=== PATIENT | female | born 1950 | race African-American/Black ===

== ENCOUNTER 2023-05-20 19:54 | Emergency (ER) | payer OTHER, SELFPAY ==
[2023-05-20] VITALS (10 sets, daily range): BP systolic 95–126; BP diastolic 49–69; PULSE 77–93; RESP 21–27; TEMP 38.3; O2SAT 94–100
--- NOTE | ~2023-05-20 | XR_ITS ---
EXAMINATION: XR chest 1V portable DATE: 05/20/2023 20:24 INDICATION: Fever and weakness TECHNIQUE: frontal view of the chest was obtained on 2 AP images. COMPARISON: None FINDINGS: Opacities in the left mid and lower lung zone which could be related to atelectasis given the elevati on the left hemidiaphragm although differential would include pneumonia. No pulmonary edema, pleural effusion or pneumothorax. Cardiomegaly. IMPRESSION: 1. Elevation the left hemidiaphragm with opacity left mid and lower lung zone most likely atelectasis although pneumonia not excludable. Reviewed, dictated and finalized at location A. [facility] [employer] IMPRESSION: 1. Elevation the left hemidiaphragm with opacity left mid and lower lung zone m ost likely atelectasis although pneumonia not excludable.
--- NOTE | ~2023-05-20 | CT_ITS ---
EXAMINATION: CT abdomen pelvis wo con DATE: 05/20/2023 21:26 INDICATION: Fever and diarrhea TECHNIQUE: Computed tomography (CT) of the abdomen and pelvis was performed without intravenous contr ast. Automated exposure control and iterative reconstruction technique were employed. The dose-length product was 663.71 mGy-cm. COMPARISON: None FINDINGS: Cardiomegaly. Minimal pericardial effusion. Small amount of pneumomediastinum in the right anterior p ericardial fat. There is also suggestion of a very small pneumothorax along the anteromedial margin o f the right middle lobe. Increased elevation of the left hemidiaphragm. There are some mild discoid a telectasis in the bilateral lower lobes. No pleural effusion. Cirrhotic liver with nodular surface. The gallbladder is nonvisualized and likely surgically absent. Spleen, pancreas and bilateral adrenal glands are normal. There are multiple bilateral renal cysts th e largest on the right measuring up to 5.2 cm. There is also a 1.3 cm hypodense hemorrhagic/proteinac eous right renal cyst. There is fluid throughout the proximal two thirds of the colon consistent with provided history of diarrhea. No abnormal bowel wall thickening or obstruction. Normal appendix. Home dder, uterus and bilateral adnexa are unremarkable. No free intraperitoneal gas or fluid. No patholog ically enlarged abdominal or pelvic lymphadenopathy. There is stranding in subcutaneous gas in the bronson bcutaneous fat at the junction of the posterior medial left thigh and inferior gluteal fold. Mild tho racic and lumbar spondylosis. L2 hemangioma with thickened vertical trabecular pattern. IMPRESSION: 1. Small amount of pneumomediastinum mediastinum and tiny right pneumothorax. This of indeterminate e tiology but given the reported history of vomiting this could be related to an esophageal tear. 2. Cardiomegaly with very small pericardial effusion. 3. Cirrhosis. 4. Fluid in the otherwise normal-appearing colon consistent with nonspecific diarrhea. 5. Stranding and gas in the subcutaneous fat at the junction of the posterior medial left thigh and i nferior left gluteal cleft which raises concern for necrotizing fasciitis. Dr. Lee discussed thi s and the pneumomediastinum/right pneumothorax with Dr. Wilcox at 9:58 PM. Reviewed, dictated and finalized at location A. [facility] IMPRESSION: 1. Small amount of pneumomediastinum mediastinum and tiny right pneumothorax. T his of indeterminate etiology but given the reported history of vomiting this c ould be related to an esophageal tear. 2. Cardiomegaly with very small pericardial effusion. 3. Cirrhosis. 4. Fluid in the otherwise normal-appearing colon consistent with nonspecific di arrhea. 5. Stranding and gas in the subcutaneous fat at the junction of the posterior m edial left thigh and inferior left gluteal cleft which raises concern for necro tizing fasciitis. Dr. Lee discussed this and the pneumomediastinum/right p neumothorax with Dr. Wilcox at 9:58 PM.
--- NOTE | 2023-05-20 19:57 | ECG_ITS ---
Measurements Intervals [place] Rate: 81 P: 67 OK: 137 QRS: -21 QRSD: 116 T: 75 QT: 364 QTc: 425 Interpretive Statements SINUS RHYTHM WITH SHORT OK INTERVAL BORDERLINE LEFT AXIS DEVIATION [QRS AXIS < -20] LEFT VENTRICULAR HYPERTROPHY AND ST-T CHANGE [VOLTAGE CRITERIA PLUS ST/T ABNORMALITY] ABNORMAL ECG NO PREVIOUS ECG AVAILABLE FOR COMPARISON Electronically Signed On 05-21-2023 13:57:58 [employer] by Fercho Tompkins M.D.
[2023-05-20 20:03] LABS: Glucose Point of Care 154 mg/dl (65-105)
--- NOTE | 2023-05-20 20:32 | ED.GENADULT ---
HPI - General Adult General Chief complaint: Weakness Stated complaint: weakness Time Seen by Provider: 05/20/23 20:01 History of Present Illness HPI narrative: patient is a 72-year-old female who presents to the emergency department with chief complaint of generalized weakness nausea vomiting and diarrhea since Wednesday the patient reports that she has been able to keep some fluids down reports she has prior history of AFib patient reports that she has also had a fever and has just felt unwell. Related Data Home Medications Medication Instructions Recorded Confirmed cholecalciferol (vitamin D3) 1,250 1,250 mcg PO WEEKLY 04/03/21 04/08/21 mcg (50,000 unit) tablet clonazepam 0.5 mg tablet (Klonopin) 0.5 mg PO DAILY PRN 04/03/21 04/08/21 empagliflozin 10 mg tablet 10 mg PO DAILY 04/03/21 04/08/21 (Jardiance) fluticasone propionate 50 2 spray intranasal DAILY 04/03/21 04/08/21 mcg/actuation nasal spray,suspension furosemide 40 mg tablet (Lasix) 40 mg PO QAM 04/03/21 04/08/21 metformin 500 mg tablet 500 mg PO DAILY 04/03/21 04/08/21 metoprolol succinate 50 mg 50 mg PO DAILY 04/03/21 04/08/21 tablet,extended release 24 hr nitroglycerin 0.6 mg/hr 1 patch transdermal DAILY 04/03/21 04/08/21 transdermal 24 hour patch potassium chloride 10 mEq 10 meq PO BID 04/03/21 04/08/21 tablet,extended release (Klor-Con) simvastatin 40 mg tablet 40 mg PO DAILY 04/03/21 04/08/21 warfarin 5 mg tablet 5 mg PO DAILY 04/03/21 04/08/21 Allergies Allergy/AdvReac Type Severity Reaction Status Date / Time aspirin Allergy Severe SWELLING Verified 05/20/23 20:03 Penicillins Allergy Severe HIVES Verified 05/20/23 20:03 Review of Systems Review of Systems: A 10 system review of systems was completed on the patient and is negative except for what is stated in the HPI. Nursing and ancillary documentation was reviewed. [facility] Social History Social History Smoking status: Never smoker Alcohol intake: never Exam Narrative: GENERAL: Well-appearing, well-nourished, and in no acute distress. HEAD: Normocephalic, atraumatic. EYES: PERRLA and EOMI. ENT: Nares clear, no rhinorrhea or epistaxis. Mucous membranes Dry. NECK: Supple. CHEST: Clear to auscultation. No respiratory distress. HEART: Regular rate and rhythm. No murmur heard. Normal peripheral pulses. ABDOMEN: Soft, diffusely tender to palpation, nondistended, normal active bowel sounds. EXTREMITIES: Normal range of motion. No edema. SKIN: Warm, dry, no rash. NEURO: No focal deficits. Alert and oriented x3. PSYCH: Normal mood and affect. Course Vital Signs Vital signs: Vital Signs Temperature 38.3 C H 05/20/23 19:58 Pulse Rate 81 05/20/23 19:58 Respiratory Rate 22 H 05/20/23 19:58 Blood Pressure 126/55 L 05/20/23 19:58 Pulse Oximetry 100 05/20/23 19:58 Oxygen Delivery Room Air 05/20/23 19:58 Temperature 38.3 C H 05/20/23 19:58 Pulse Rate 85 05/20/23 22:17 Respiratory Rate 27 H 05/20/23 22:17 Blood Pressure 118/59 L 05/20/23 22:17 Pulse Oximetry 97 05/20/23 22:17 Oxygen Delivery Room Air 05/20/23 19:58 Medical Decision Making MDM Narrative Medical decision making narrative: Differential diagnosis includes sepsis, dehydration, colitis, diverticulitis laboratory studies [place] [address] electrolytes showed a elevation of BUN and creatinine with a creatinine of 3.4 lactate was amazingly not elevated at 1.7 procalcitonin was elevated at 31.4 urinalysis is still pending COVID flu and RSV were negative. A CT scan of the abdomen pelvis showed 1. Small amount of pneumomediastinum mediastinum and tiny right pneumothorax. This of indeterminate etiology but given the reported history of vomiting this could be related to an esophageal tear. 2. Cardiomegaly with very small pericardial effusion. 3. Cirrhosis. 4. Flui
[2023-05-20] MEDS: SODIUM CHLORIDE 0.9% IV 1,000 ML 999 ML IV CONT (20:42)
[2023-05-20] MEDS: ONDANSETRON INJ 4 MG/2 ML VIAL IV PUSH (20:43)
[2023-05-20] MEDS: ACETAMINOPHEN 500 MG TABLET 1000 MG PO (20:44)
[2023-05-20 20:45] LABS: Influenza A QL RT-PCR Negative (Negative); Influenza B QL RT-PCR Negative (Negative); RSV RNA, RT-PCR Negative (Negative); SARS-CoV-2 RNA PCR Negative (Negative)
[2023-05-20 21:00] LABS: Basophils Absolute Auto 0.1 K/mm3 (0.0-0.1); Basophils Percent Auto 0.4 % (0.2-1.2); Eosinophils Absolute Auto 0.1 K/mm3 (0-0.3); Eosinophils Percent Auto 0.7 % (0-4.4); Hemoglobin 9.9 g/dL (12.0-15.0); Immature Granulocyte Absolute 0.19 K/mm3 (0.00-0.031); Immature Granulocyte Percent A 0.9 % (0-0.5); Immature Platelet Fraction Pct 8.9 % (0.9-11.2); Lymphocytes Absolute Auto 0.74 K/mm3 (0.9-3.2); Lymphocytes Percent Auto 3.7 % (18.3-44.2); Mean Corpuscular Hemoglobin 25.1 pg (26-34); Mean Corpuscular Volume 76.1 fl (80-100); Mean Platelet Volume 11.5 fl (7.4-10.4); Monocytes Absolute Auto 1.3 K/mm3 (0.1-0.6); Monocytes Percent Auto 6.3 % (2.6-8.5); Neutrophils Absolute Auto 17.8 K/mm3 (1.3-6.7); Nucleated Red Blood Cells Perc 0.1 % (0.0-0.2); Platelet Count Result 143 k/mm3 (150-375); Red Blood Count 3.94 M/mm3 (4.2-5.4); Red Cell Distribution Width 16.6 % (11.5-14.5); White Blood Count 20.2 K/mm3 (4.5-10.0)
[2023-05-20 21:10] LABS: Lactic Acid Reflex 1.7 mmol/L (0.7-2.0)
[2023-05-20 21:11] LABS: Alanine Aminotransferase 30 U/L (6-35); Albumin Level 3.1 g/dL (3.5-5.1); Alkaline Phosphatase 211 U/L (38-126); Anion Gap 7 mmol/L (8-16); Aspartate Amino Transferase 60 U/L (14-36); Bilirubin,Total 1.8 mg/dL (0.2-1.3); Blood Urea Nitrogen 52 mg/dL (7-17); Calcium 9.2 mg/dL (8.4-10.2); Carbon Dioxide 21 mmol/L (22-30); Chloride 106 mmol/L (98-107); Estimated CRCL calculation 13 ml/min; Estimated Glomerular Filt Rate 16; Glucose 159 mg/dL (65-110); Magnesium 2.4 mg/dL (1.6-2.3); Potassium 4.4 mmol/L (3.4-5.0); Sodium 134 mmol/L (137-145)
[2023-05-20 21:17] LABS: Platelet Estimate Adequate (Adequate)
[2023-05-20 21:18] LABS: Anisocytosis 1+ (NORMAL); Schistocytes None Seen (NORMAL); Target Cells 1+ (NORMAL)
--- NOTE | 2023-05-20 21:18 | PC.NURSE ---
Pt to CT at this time. This RN will attempt to obtain blood cultures and UA once pt is back in room.
[2023-05-20 21:32] LABS: Procalcitonin 31.4 ng/mL
[2023-05-20 23:16] LABS: Add Urine Microscopic? YES; Appearance Urine Cloudy (Clear); Bacteria Urine None Seen /hpf; Bilirubin Urine Negative (Negative); Blood Urine Negative (Negative); Color Urine Yellow (Yellow); Glucose Urine UA 3+ mg/dL (Negative); Granular Casts Urine Present /lpf; Ketones Urine Negative (Negative); Leukocyte Esterase Ur Negative LEU/UL (Negative); Mucus Urine Present /lpf; Nitrate Urine Negative (Negative); Non Pathogenic Casts >20; Protein Urine 3+ mg/dL (Negative); RBC Urine 0-2 /hpf (0-2); Specific Grav Ur 1.014 (1.001-1.035); Squamous Epithelial Cell Urine None seen /hpf (Few); WBC Urine 0-5 /hpf
[2023-05-20] MEDS: MEROPENEM 1 GM/NS 100 ML 1 GM/100 ML BAG IVPB (23:24)
--- NOTE | 2023-05-20 23:48 | PC.NURSE ---
This RN and x3 other RNs have been unsuccessful on getting another line on pt after 20 in LAC infiltrated. Natali RN inserted 22 in R great finger. DESI Stapleton attempted using ultrasound for IV and was unsuccessful x3. EDP, Dr. Wilcox made aware. No further orders.
[2023-05-20] MEDS: CLINDAMYCIN 900 MG/D5W 50 ML 900 MG/50 ML PIGGYBACK 50 MG IVPB (23:53)
[2023-05-21] VITALS: BP 116/57; PULSE 68; RESP 24; O2SAT 97
[2023-05-21] MEDS: VANCOMYCIN 1,250 MG/NS 250 ML 1,250 MG/250 ML BAG 166.67 MG IVPB (00:29)
== END 2023-05-21 00:40 | disposition short-term general hospital (02) ==
PROVIDERS: Emergency Provider Emergency Medicine; PCP Internal Medicine Infectious Disease
DX: A41.9 Sepsis, unspecified organism (principal); J98.2 Interstitial emphysema; J93.9 Pneumothorax, unspecified; M72.6 Necrotizing fasciitis; N17.9 Acute kidney failure, unspecified; L02.31 Cutaneous abscess of buttock; Z20.822 Contact with and (suspected) exposure to COVID-19; Z79.84 Long term (current) use of oral hypoglycemic drugs; Z79.01 Long term (current) use of anticoagulants; I51.7 Cardiomegaly; K74.60 Unspecified cirrhosis of liver; R94.31 Abnormal electrocardiogram [ECG] [EKG]
CPT/HCPCS: 36415; 71045; 74176; 80053; 81001; 82948; 83605; 83735; 84145; 85025; 85055; 87040; 87637; 93005; 96361; 96365; 96367; 96375; 99291; A9270; J2185; J2405; J3370; J7030